=== PATIENT | male | born 1985 | race Caucasian/White ===

== ENCOUNTER 2022-08-27 09:21 | Emergency (ER) | payer OTHER, BC ==
[2022-08-27] MEDS ORDERED: Diphtheria,Pertussis(Acell),Tetanus Vaccine 0.5 ML Syringe IM ONE (10:10)
[2022-08-27] MEDS ORDERED: Octyl 2-Cyanoacrylate 1 g/1 mL 1 APPLIC PEN TOP ONE (10:12)
[2022-08-27 10:52] VITALS: BP 131/81; PULSE 72
== END 2022-08-27 10:52 | disposition home or self-care (01) ==
LOC: MW.ED 09:21
DX: S61.412A Laceration without foreign body of left hand, initial encounter (principal); X58.XXXA Exposure to other specified factors, initial encounter; Z23 Encounter for immunization
CPT/HCPCS: 12001; 90471; 90715; 99283-25